=== PATIENT | female | born 1995 | race Caucasian/White ===

== ENCOUNTER 2017-10-03 13:56 | Emergency (ER) | payer BC ==
[2017-10-03 14:35] VITALS: BP 103/71
--- NOTE | 2017-10-03 15:05 | UC ---
Throat Pain/Nasal Santi HPI - HPI Summary HPI Summary: Sore throat body aches for a couple of days - History of Current Complaint Chief Complaint: UCRespiratory Stated Complaint: THROAT COMPLAINT Time Seen by Provider: 10/03/17 15:03 Hx Obtained From: Patient Hx Last Menstrual Period: 09/16/17 ?: No Onset/Duration: Sudden Onset, Lasting Days - 2 Severity: Moderate Cough: None Associated Signs & Symptoms: Positive: Negative - Allergies/Home Medications Allergies/Adverse Reactions: Allergies Allergy/AdvReac Type Severity Reaction Status Date / Time amoxicillin, penicillin Allergy Rash Uncoded 10/03/17 14:35 Home Medications: Home Medications Day Time Cough Sore Throat 2 tab PO QAM PRN 10/03/17 [History] Multivitamins/Minerals TAB* [Theragran/minerals TAB*] 1 tab PO BEDTIME 10/03/17 [History Confirmed 10/03/17] [place]-3 Fatty Acids [[place] 3 1000 mg] 1 cap PO BEDTIME 10/03/17 [History Confirmed 10/03/17] Otc Nighttime For Cough/ Throat 2 tab PO BEDTIME PRN 10/03/17 [History] Sertraline* [Zoloft*] 100 mg PO BEDTIME 10/03/17 [History Confirmed 10/03/17] PMH/Surg Hx/FS Hx/Imm Hx Previously Healthy: Yes - Surgical History Surgical History: Yes Surgery Procedure, Year, and Place: ear tubes, wisdom teeth - Family History Known Family History: Positive: None - Social History Occupation: Employed Part-time Lives: With Family Alcohol Use: None Substance Use Type: None Smoking Status (MU): Never Smoked Tobacco Review of Systems Constitutional: Chills, Fatigue Skin: Negative Eyes: Negative ENT: Sore Throat Respiratory: Negative Cardiovascular: Negative Gastrointestinal: Negative Genitourinary: Negative Motor: Negative Neurovascular: Negative Musculoskeletal: Negative Neurological: Negative Psychological: Negative Is Patient Immunocompromised?: No All Other Systems Reviewed And Are Negative: Yes Physical Exam Triage Information Reviewed: Yes Appearance: No Pain Distress, Well-Nourished, Ill-Appearing - mild Vital Signs: Initial Vital Signs Temp 98.8 F 10/03/17 14:27 Pulse 79 10/03/17 14:27 Resp 24 10/03/17 14:27 BP 103/71 10/03/17 14:27 Vital Signs Reviewed: Yes Eye Exam: Normal Eyes: Positive: Conjunctiva Clear ENT Exam: Normal ENT: Positive: Normal ENT inspection, Hearing grossly normal, Pharyngeal erythema, TMs normal, Uvula midline. Negative: Nasal congestion, Nasal drainage , Tonsillar swelling, Tonsillar exudate, Trismus, Muffled voice, Hoarse voice, Dental tenderness, Sinus tenderness Dental Exam: Normal Neck exam: Normal Neck: Positive: Supple, Nontender, No Lymphadenopathy Respiratory Exam: Normal Respiratory: Positive: Chest non-tender, Lungs clear, Normal breath sounds, No respiratory distress, No accessory muscle use Cardiovascular Exam: Normal Cardiovascular: Positive: RRR, No Murmur, Pulses Normal, Brisk Capillary Refill Abdominal Exam: Normal Abdomen Description: Positive: Nontender, No Organomegaly, Soft. Negative: CVA Tenderness (R), CVA Tenderness (L), Guarding, Hepatomegaly, Splenomegaly Bowel Sounds: Positive: Present Musculoskeletal Exam: Normal Musculoskeletal: Positive: Strength Intact, ROM Intact, No Edema Neurological Exam: Normal Neurological: Positive: Alert, Muscle Tone Normal Psychological Exam: Normal Skin Exam: Normal Diagnostics - Laboratory Diagnostic Studies Completed/Ordered: RST & INFLU A/B (-) Throat Pain/Nasal Course/Dx - Course Assessment/Plan: zithromax, prednisone, increase fluids, rest follow with pcp prn - Differential Dx/Diagnosis Provider Diagnoses: Pharyngitis Discharge - Discharge Plan Condition: Stable Disposition: HOME Prescriptions: Azithromycin TAB* [Zithromax TAB (Z-GALINDO) 250 mg #6 tabs] 2 tab PO .TODAY, THEN 1 DAILY #1 galindo predniSONE TAB* [Deltasone TAB*] 50 mg PO DAILY #4 tab Patient Education Materials: Pharyngitis (ED) Forms: *Work Release Referrals: Fadi WILLIAMSON,Maria C Rosales [Primary Care Provider] - If Needed
== END 2017-10-03 15:41 | disposition home or self-care (01) ==
LOC: UCCORT 13:56
DX: J02.9 Acute pharyngitis, unspecified (principal); Z88.0 Allergy status to penicillin
CPT/HCPCS: 87502; 87651; 99212; G0463

== ENCOUNTER 2017-12-21 11:05 | Emergency (ER) | payer BC ==
[2017-12-21 11:29] VITALS: BP 99/60
--- NOTE | 2017-12-21 11:32 | UC ---
Throat Pain/Nasal Santi HPI - HPI Summary HPI Summary: 3 days of sore throat, some coug,h no fever, body aches - History of Current Complaint Chief Complaint: UCRespiratory Stated Complaint: SORE THROAT Time Seen by Provider: 12/21/17 11:23 Hx Obtained From: Patient Hx Last Menstrual Period: 09/16/17 ?: No Onset/Duration: Sudden Onset, Lasting Days - 3, Still Present Severity: Moderate Pain Intensity: 5 Pain Scale Used: 0-10 Numeric Cough: Productive - Allergies/Home Medications Allergies/Adverse Reactions: Allergies Allergy/AdvReac Type Severity Reaction Status Date / Time lactose Allergy GI Upset Verified 12/21/17 11:28 amoxicillin, penicillin Allergy Rash Uncoded 12/21/17 11:27 PMH/Surg Hx/FS Hx/Imm Hx Previously Healthy: No - autism Psychological History: Anxiety - Surgical History Surgical History: Yes Surgery Procedure, Year, and Place: ear tubes, wisdom teeth - Family History Known Family History: Positive: None - Social History Occupation: Employed Full-time Lives: With Family Alcohol Use: None Substance Use Type: None Smoking Status (MU): Never Smoked Tobacco Review of Systems Constitutional: Fatigue Skin: Negative Eyes: Negative ENT: Sore Throat Respiratory: Cough Cardiovascular: Negative Gastrointestinal: Negative Genitourinary: Negative Motor: Negative Neurovascular: Negative Musculoskeletal: Arthralgia Neurological: Negative Psychological: Negative Is Patient Immunocompromised?: No All Other Systems Reviewed And Are Negative: Yes Physical Exam Triage Information Reviewed: Yes Appearance: Well-Appearing, No Pain Distress, Well-Nourished Vital Signs Reviewed: Yes Eye Exam: Normal Eyes: Positive: Conjunctiva Clear ENT Exam: Normal ENT: Positive: Normal ENT inspection, Hearing grossly normal, Pharyngeal erythema, TMs normal - cerumen, Uvula midline. Negative: Tonsillar swelling, Trismus, Muffled voice, Hoarse voice, Dental tenderness, Sinus tenderness Dental Exam: Normal Neck exam: Normal Neck: Positive: Supple, Nontender, No Lymphadenopathy Respiratory Exam: Normal Respiratory: Positive: Chest non-tender, Lungs clear, Normal breath sounds, No respiratory distress, No accessory muscle use Cardiovascular Exam: Normal Cardiovascular: Positive: RRR, No Murmur, Pulses Normal, Brisk Capillary Refill Musculoskeletal Exam: Normal Musculoskeletal: Positive: Strength Intact, ROM Intact, No Edema Neurological Exam: Normal Neurological: Positive: Alert, Muscle Tone Normal Psychological Exam: Normal Skin Exam: Normal Diagnostics - Laboratory Diagnostic Studies Completed/Ordered: RST (-), Influenza A/B(-) Throat Pain/Nasal Course/Dx - Course Assessment/Plan: increase fluids, otc medications for symptoms relief, tessalon for cough may start antibiodic if sx worsen - Differential Dx/Diagnosis Provider Diagnoses: Pharyngits, uri Discharge - Discharge Plan Condition: Stable Disposition: HOME Prescriptions: Azithromycin TAB* [Zithromax TAB (Z-GALINDO) 250 mg #6 tabs] 2 tab PO .TODAY, THEN 1 DAILY #1 galindo Benzonatate CAP* [Tessalon 100 MG CAP*] 100 - 200 mg PO TID #40 cap Patient Education Materials: Upper Respiratory Infection (ED) Forms: *Work Release Referrals: Maria C Da Silva [Primary Care Provider] - If Needed
== END 2017-12-21 12:19 | disposition home or self-care (01) ==
LOC: UCCORT 11:05
DX: J02.9 Acute pharyngitis, unspecified (principal); J06.9 Acute upper respiratory infection, unspecified; Z88.0 Allergy status to penicillin; Z91.011 Allergy to milk products
CPT/HCPCS: 87502; 87651; 99212; G0463

== ENCOUNTER 2018-05-24 17:20 | Emergency (ER) | payer BC ==
[2018-05-24 17:42] VITALS: BP 99/58
--- NOTE | 2018-05-24 17:50 | UC ---
Throat Pain/Nasal Santi HPI - HPI Summary HPI Summary: 23 y/o female presents to the urgent care c/o sore throat, dry cough and clear nasal congestion since this morning at 0500AM. Pain w/ swallowing is 6/10 she took this morning 2 tabs of azithromycin she had left from previous treatment on 12/2017. 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 Pt denies fevers, CELESTIN, SOB, chest pain, abdominal pain, N/V/D. - History of Current Complaint Chief Complaint: UCRespiratory Stated Complaint: SORE THROAT Time Seen by Provider: 05/24/18 17:46 Hx Obtained From: Patient Hx Last Menstrual Period: 04/27/18 ?: No Onset/Duration: Gradual Onset, Lasting Hours - 12 hrs, Still Present Severity: Moderate Pain Intensity: 7 Pain Scale Used: 0-10 Numeric Cough: Nonproductive Associated Signs & Symptoms: Positive: Dysphagia, Nasal Discharge - clear. Negative: Fever - Epiglottits Risk Factors Epiglottis Risk Factors: Negative - Allergies/Home Medications Allergies/Adverse Reactions: Allergies Allergy/AdvReac Type Severity Reaction Status Date / Time lactose Allergy GI Upset Verified 05/24/18 17:33 amoxicillin, penicillin Allergy Rash Uncoded 05/24/18 17:33 PMH/Surg Hx/FS Hx/Imm Hx Previously Healthy: Yes Psychological History: Anxiety - Surgical History Surgical History: Yes Surgery Procedure, Year, and Place: ear tubes, wisdom teeth - Family History Known Family History: Positive: None - Pt denies FMHX - Social History Occupation: Employed Full-time Lives: With Family Alcohol Use: None Substance Use Type: None Smoking Status (MU): Never Smoked Tobacco Review of Systems Constitutional: Negative Skin: Negative Eyes: Negative ENT: Sore Throat, Nasal Discharge, Sinus Congestion Respiratory: Cough - dry Cardiovascular: Negative Gastrointestinal: Negative Genitourinary: Negative Motor: Negative Neurovascular: Negative Musculoskeletal: Negative Neurological: Negative Psychological: Negative Is Patient Immunocompromised?: No All Other Systems Reviewed And Are Negative: Yes Physical Exam - Summary Physical Exam Summary: VITAL SIGNS: Reviewed. GENERAL: Patient is a well developed and nourished female who is sitting comfortable in the examining table. Patient is not in any acute respiratory distress. HEAD AND FACE: No signs of trauma. No ecchymosis, hematomas or skull depressions. No sinus tenderness. EYES: PERRLA, EOMI x 2, No injected conjunctiva, no nystagmus. No photophobia. EARS: Hearing grossly intact. Ear canals and tympanic membranes are within normal limits. Nose: edematous and erythematous nasal mucosa w/ clear nasal discharge. MOUTH: Positive no erythema, no tonsillar enlargement. Uvula in midline. NECK: Supple, trachea is midline, Positive anterior cervical lymphadenopathy, no JVD, no carotid bruit, no c-spine tenderness, neck with full ROM. No meningeal signs, no Kernig's or brudzinskis signs. CHEST: Symmetric, no tenderness at palpation LUNGS: Clear to auscultation bilaterally. No wheezing or crackles. CVS: Regular rate and rhythm, S1 and S2 present, no murmurs or gallops appreciated. ABDOMEN: Soft, non-tender. No signs of distention. No rebound no guarding, and no masses palpated. Bowel sounds are normal. EXTREMITIES: FROM in all major joints, no edema, no cyanosis or clubbing. NEURO: Alert and oriented x 3. No acute neurological deficits. Speech is normal and follows commands. SKIN: Dry and warm Triage Information Reviewed: Yes Vital Signs: Initial Vital Signs Temp 98.9 F 05/24/18 17:36 Pulse 84 05/24/18 17:36 Resp 17 05/24/18 17:36 BP 99/58 05/24/18 17:36 Pulse Ox 99 05/24/18 17:36 Throat Pain/Nasal Course/Dx - Course Course Of Treatment: 23 y/o female presents to the urgent care c/o sore throat, dry cough and clear nasal congestion since this morning at 0500AM. Pain w/ swallowing is 6/10 she took this morning 2 tabs of azithromycin she had left from previous treatment on 12/2017. 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 Pt denies fevers, CELESTIN, SOB, chest pain, abdominal pain, N/V/D. Hx obtained. Pt w/ an upper respiratory infection and B/ L ear cerumen impaction on examination. Pt advised to increase fluid intake, rest and eat well, Rx Ibuprofen,and Debrox otic drops to alleviate symptoms. Pt understood and agreed with D/C instructions. - Differential Dx/Diagnosis Differential Diagnosis/HQI/PQRI: Influenza, Laryngitis, Otitis Media, Pharyngitis, Tonsillitis, URI, Other - cerumen impaction Provider Diagnoses: 1-Upper respiratory infection. 2-B/L cerumen impaction Discharge - Sign-Out/Discharge Documenting (check all that apply): Patient Departure - D/C home - Discharge Plan Condition: Stable Disposition: HOME Prescriptions: Acetaminophen TAB* [Tylenol TAB*] 650 mg PO Q6H PRN #30 tab PRN Reason: Pain Carbamide Peroxide 6.5% OTIC* [DEBROX 6.5% Otic*] 5 drop BOTH EARS BID #1 bottle Patient Education Materials: Cerumen Impaction (ED), Upper Respiratory Infection (ED) Referrals: [facility]ERR[facility] [Outside] - 3 Days Additional Instructions: 1-Please take Tylenol PO q6-8hrs prn as instructed after meals to alleviate pain and swelling. Increase fluid intake, eat well, rest and avoid strenuous exercise. 2-Apply Debrox otic drops as directed to soften wax 3-If symptoms do not improve or worsen please return to the urgent care or f/u with your PCP for further evaluation and treatment. - Billing Disposition and Condition Condition: STABLE Disposition: Home
== END 2018-05-24 18:23 | disposition home or self-care (01) ==
LOC: UCCORT 17:20
DX: J06.9 Acute upper respiratory infection, unspecified (principal); H61.23 Impacted cerumen, bilateral; Z88.0 Allergy status to penicillin
CPT/HCPCS: 87651; 99212; G0463